=== PATIENT | female | born 1950 | race Caucasian/White ===

== ENCOUNTER 2020-06-16 20:37 | Emergency (ER) | payer MEDICARE ==
--- NOTE | 2020-06-16 20:45 | EDM.PDOC ---
ED HPI GENERAL MEDICAL PROBLEM - General Chief Complaint: Respiratory Problem Stated Complaint: SOB Time Seen by Provider: 06/16/20 20:40 - History of Present Illness INITIAL COMMENTS - FREE TEXT/NARRATIVE: 69 year-old female presents today for shortness of breath. Patient states that today she felt like she was choking and could not catch her breath. Patient also has some nausea. Patient denies any fevers chills. She reports she is also had a cough with white sputum. Patient denies any other complaints. Chest Pain Score (Numeric/FACES): 6 - Related Data Allergies Allergy/AdvReac Type Severity Reaction Status Date / Time lisinopril Allergy Cough Verified 06/16/20 20:40 morphine Allergy Vomiting Verified 06/16/20 20:40 Home Meds: Home Meds Aspirin [Adult Aspirin] 1 tab DAILY 07/25/18 [History] Insulin Aspart [NovoLOG] 0 unit SQ WITHMEALSANDBED 07/25/18 [History] Insulin Detemir [Levemir] 45 unit SQ DAILY 07/25/18 [History] Losartan Potassium 1 tab DAILY 07/25/18 [History] Potassium Chloride [K-Tab ER] 1 tab DAILY 07/25/18 [History] Past Medical History Cardiovascular History: Reports: High Cholesterol, Hypertension Endocrine/Metabolic History: Reports: Diabetes, Type I, Obesity/BMI 30+ - Past Surgical History GI Surgical History: Reports: Cholecystectomy Musculoskeletal Surgical History: Reports: Amputation Social & Family History - Family History Family Medical History: Noncontributory ED ROS GENERAL - Review of Systems Review Of Systems: See Below Respiratory: Reports: Shortness of Breath ED EXAM, GENERAL - Physical Exam Exam: See Below Exam Limited By: No Limitations General Appearance: Alert, No Apparent Distress Throat/Mouth: Normal Inspection Respiratory/Chest: No Respiratory Distress, Lungs Clear, Normal Breath Sounds Cardiovascular: Regular Rate, Rhythm GI/Abdominal: Normal Bowel Sounds, Soft, Non-Tender Neurological: Alert, Oriented #1 Interpretation EKG Date: 06/16/20 Time: 20:36 Rhythm: NSR Rate (Beats/Min): 88 ST-T: Normal Course - Vital Signs Last Recorded V/S: Last Vital Signs Temp 96.8 F L 06/16/20 20:42 Pulse 81 06/16/20 22:07 Resp 20 06/16/20 21:37 BP 135/57 L 06/16/20 22:07 Pulse Ox 95 06/16/20 22:07 - Orders/Labs/Meds Labs: Laboratory Tests 06/16/20 06/16/20 06/16/20 Range/Units 20:51 20:51 22:06 WBC 8.53 (4.0-11.0) K/uL RBC 4.73 (4.30-5.90) M/uL Hgb 14.0 (12.0-16.0) g/dL Hct 44.1 (36.0-46.0) % MCV 93.2 (80.0-98.0) fL MCH 29.6 (27.0-32.0) pg MCHC 31.7 (31.0-37.0) g/dL RDW Std Deviation 47.2 (28.0-62.0) fl RDW Coeff of Nevaeh 14 (11.0-15.0) % Plt Count 213 (150-400) K/uL MPV 9.50 (7.40-12.00) fL Neut % (Auto) 66.8 (48.0-80.0) % Lymph % (Auto) 26.0 (16.0-40.0) % [place] % (Auto) 6.9 (0.0-15.0) % Eos % (Auto) 0.1 (0.0-7.0) % Baso % (Auto) 0.2 (0.0-1.5) % Neut # (Auto) 5.7 (1.4-5.7) K/uL Lymph # (Auto) 2.2 (0.6-2.4) K/uL [place] # (Auto) 0.6 (0.0-0.8) K/uL Eos # (Auto) 0.0 (0.0-0.7) K/uL Baso # (Auto) 0.0 (0.0-0.1) K/uL Nucleated RBC % 0.0 /100WBC Nucleated RBCs # 0 K/uL Sodium 137 (136-145) mmol/L Potassium 4.3 (3.5-5.1) mmol/L Chloride 100 (98-107) mmol/L Carbon Dioxide 25.5 (21.0-32.0) mmol/L BUN 16 (7.0-18.0) mg/dL Creatinine 1.1 H (0.6-1.0) mg/dL Est Cr Clr Drug Dosing 43.91 mL/min Estimated GFR (MDRD) 49.0 ml/min Glucose 128 H (74-106) mg/dL Calcium 8.6 (8.5-10.1) mg/dL Total Bilirubin 0.5 (0.2-1.0) mg/dL AST 38 H (15-37) IU/L ALT 47 (14-63) IU/L Alkaline Phosphatase 224 H (46-116) U/L Troponin I < 0.050 (0.000-0.056) ng/mL Total Protein 7.3 (6.4-8.2) g/dL Albumin 3.0 L (3.4-5.0) g/dL Globulin 4.3 H (2.6-4.0) g/dL Albumin/Globulin Ratio 0.7 L (0.9-1.6) Lipase 26 L (73-393) U/L Departure - Departure Time of Disposition: 21:56 Disposition: Home, Self-Care 01 Condition: Good Clinical Impression: Dyspnea - Discharge Information *PRESCRIPTION DRUG MONITORING PROGRAM REVIEWED*: Not Applicable *COPY OF PRESCRIPTION DRUG MONITORING REPORT IN PATIENT MONIKA: Not Applicable Instructions: Shortness of Breath, Adult, [id number] Referrals: PCP,None [Primary Care Provider] - Forms: ED Department Discharge Additional Instructions: The following information is given to patients seen in the emergency department who are being discharged to home. This information is to outline your options for follow-up care. We provide all patients seen in our emergency department with a follow-up referral. The need for follow-up, as well as the timing and circumstances, are variable depending upon the specifics of your emergency department visit. If you don't have a primary care physician on staff, we will provide you with a referral. We always advise you to contact your personal physician following an emergency department visit to inform them of the circumstance of the visit and for follow-up with them and/or the need for any referrals to a consulting specialist. The emergency department will also refer you to a specialist when appropriate. This referral assures that you have the opportunity for follow-up care with a specialist. All of these measure are taken in an effort to provide you with optimal care, which includes your follow-up. Under all circumstances we always encourage you to contact your private physician who remains a resource for coordinating your care. When calling for follow-up care, please make the office aware that this follow-up is from your recent emergency room visit. If for any reason you are refused follow-up, please contact the [facility] Emergency Department at and asked to speak to the emergency department charge nurse. Please continue to monitor oxygen level if you continue to feel short of breath please return to the emergency department. Sepsis Event Note (ED) - Focused Exam Vital Signs: Vital Signs Temp Pulse Resp BP Pulse Ox 06/16/20 22:07 81 135/57 L 95 06/16/20 21:37 70 20 143/44 H 94 L 06/16/20 20:42 96.8 F L 95 22 H 190/86 H 94 L - Assessment/Plan Plan: -year-old female presents today for shortness of breath and cough. Patient has noted complaints. Will obtain labs and x-ray and reassess. Patient is currently satting 94% on room air. Oxygen level is 98% on room. Patient x-ray and labs reviewed. Patient will be discharged home and given strict return precautions. Patient stable.
[2020-06-16 21:16] LABS: CARBON DIOXIDE,CO2 25.5 mmol/L (21.0-32.0); POTASSIUM,K 4.3 mmol/L (3.5-5.1)
--- NOTE | 2020-06-16 21:30 | CR ---
INDICATION: cough and SOB. 1 image sent. TECHNIQUE: Chest 1 view. COMPARISON: None. FINDINGS: Cardiovascular and mediastinum: Heart size and vasculature are normal in caliber and appearance. Mediastinum is within normal limits. Lungs and pleural space: Lungs are clear. No sign of infiltrate or mass. No sign of pleural effusion. No pneumothorax. Bones and soft tissues: No significant findings. IMPRESSION: Unremarkable chest. Dictated by: Darnell Avendaño MD @ 06/16/2020 21:27:25 (Electronically Signed)
== END 2020-06-16 23:04 | disposition home or self-care (01) ==
LOC: MW.ED 20:37
DX: R06.02 Shortness of breath (principal); I10 Essential (primary) hypertension; E10.9 Type 1 diabetes mellitus without complications; E66.9 Obesity, unspecified; Z79.82 Long term (current) use of aspirin; Z79.899 Other long term (current) drug therapy
CPT/HCPCS: 36415; 71045; 71045-26; 80053; 83690; 84484; 85025; 93005; 99283; 99285-25

== ENCOUNTER 2021-04-21 23:44 | Emergency (ER) | payer MEDICARE ==
[2021-04-22] MEDS ORDERED: traMADol 50 MG Tab PO ONE (01:33)
[2021-04-22 02:28] LABS: CARBON DIOXIDE,CO2 30.8 mmol/L (21.0-32.0); POTASSIUM,K 5.2 mmol/L (3.5-5.1)
[2021-04-22] MEDS ORDERED: Amoxicillin/Clavulanate K 875-125 MG Tab PO ONE (02:42)
--- NOTE | 2021-04-22 02:48 | EDM.PDOC ---
ED HPI GENERAL MEDICAL PROBLEM - General Chief Complaint: Lower Extremity Injury/Pain Stated Complaint: POSSIBLE INFECTION IN FOOT Time Seen by Provider: 04/22/21 01:21 - History of Present Illness INITIAL COMMENTS - FREE TEXT/NARRATIVE: HISTORY AND PHYSICAL: History of present illness: This is a 70-year-old female who presents ER today secondary to pain to her left foot that is been progressively getting worse over the last several weeks. Patient reports that she was seen by her primary care physician yesterday to evaluate her foot. At that time did not think there was an infection. Patient reports that the pain is been so severe that she is having a hard time transitioning from her wheelchair to her bed to keep her legs elevated. She reports that her legs become more swollen. Patient denies any recent fevers, s hakes, chills, nausea, vomiting, diarrhea, dysuria, frequency, urgency. Patient does have a history of diabetes, hypertension, status post right AKA. Review of systems: As per history of present illness and below otherwise all systems reviewed and negative. Past medical history: As per history of present illness and as reviewed below otherwise noncontributory. Surgical history: As per history of present illness and as reviewed below otherwise noncontributory. Social history: No reported history of drug abuse. Family history: As per history of present illness and as reviewed below otherwise noncontributory. Physical exam: This patient was seen and evaluated during the 2019 SARS-CoV-2 novel coronavirus pandemic period. Community viral transmission is ongoing at time of this enc ounter and the emergency department is operating under pandemic response procedures. Constitutional: Patient is oriented to person, place, and time. Appears well- developed and well-nourished. No distress. HEENT: Moist mucous membranes Head: Normocephalic and atraumatic Eyes: Right eye exhibits no discharge. Left eye exhibits no discharge. No scleral icterus Neck: Normal range of motion. No tracheal deviation present. Cardiovascular: Normal rate and regular rhythm. Pulmonary: Effort normal, no respiratory distress. Abdominal: No distention Musculoskeletal: Normal range of motion Neurologic: Alert and oriented to person, place and time. Skin: [place], warm and dry. Psychiatric: Normal mood and affect. Behavior is normal. Judgment and thought content normal. Nursing note and vital signs have been reviewed Patient is status post right AKA. Patient's left foot is edematous approximately 2+ with good capillary refill distally, warm foot without evidence of a arterial occlusion. Patient does have a small ulcer at the bottom of her big toe. No drainage or purulence. Diagnostics: [] Therapeutics: [] Assessment and plan: 70-year-old female who presents ER today secondary to pain to her left foot that been progressively worsening over the last several weeks. Patient at this time is only taking medication for neuropathy for her foot. Patient was given Ultram here in the ED and will be given Augmentin. Patient's labs are unremarkable except for an elevated BUN and creatinine. I have discussed this with the patient and the need to keep a close follow-up with her primary care physician to evaluate her renal function. Patient will be given a prescription for Ultram and Augmentin to assist with possible early infection of her foot. There is no evidence of acute arterial occlusion at this time. Patient is not vaccinated for coronavirus Reassessment at the time of disposition demonstrates that the patient is in no acute distress. The patient has remained stable throughout the entire ED visit and is without objective evidence for acute process requiring urgent intervention or hospitalization. The patient is stable for discharge, counseling is provided as documented above, discussed symptomatic treatment and specific conditions for return. I have spoken with the patient/caregiver and discussed todays findings, in addition to providing specific details for the plan of care. Questions are answered and there is agreement with the plan. Definitive disposition and diagnosis as appropriate pending reevaluation and review of above. Left Lower Foot Pain Score (Numeric/FACES): 8 - Related Data Allergies Allergy/AdvReac Type Severity Reaction Status Date / Time lisinopril Allergy Cough Verified 06/16/20 20:40 morphine Allergy Vomiting Verified 06/16/20 20:40 Home Meds: Home Meds Aspirin [Adult Aspirin] 1 tab PO DAILY 07/25/18 [History] Insulin Aspart [NovoLOG] 0 unit SQ WITHMEALSANDBED 07/25/18 [History] Insulin Detemir [Levemir] 45 unit SQ DAILY 07/25/18 [History] Losartan Potassium 1 tab DAILY 07/25/18 [History] Potassium Chloride [K-Tab ER] 1 tab DAILY 07/25/18 [History] Amoxicillin/Clavulanate K [Augmentin 875-125 MG] 1 tab PO Q12HR 10 Days #20 tab 04/22/21 [Rx] Furosemide [Lasix] 40 mg PO DAILY 04/22/21 [History] Gabapentin [Neurontin] 300 mg PO TID 04/22/21 [History] Rosuvastatin [Crestor] 5 mg PO DAILY 04/22/21 [History] traMADol [Ultram] 50 mg PO Q6H PRN #12 tab 04/22/21 [Rx] Past Medical History Cardiovascular History: Reports: High Cholesterol, Hypertension Endocrine/Metabolic History: Reports: Diabetes, Type I, Obesity/BMI 30+ - Infectious Disease History Infectious Disease History: Reports: Chicken Pox, Mumps - Past Surgical History GI Surgical History: Reports: Cholecystectomy Musculoskeletal Surgical History: Reports: Amputation Social & Family History - Family History Family Medical History: No Pertinent Family History - Tobacco Use Tobacco Use Status *Q: Never Tobacco User Second Hand Smoke Exposure: No - Caffeine Use Caffeine Use: Reports: Coffee, Tea - Recreational Drug Use Recreational Drug Use: No Review of Systems - Review of Systems Review Of Systems: See Below ED EXAM, GENERAL - Physical Exam Exam: See Below Course - Vital Signs Last Recorded V/S: Last Vital Signs Temp 97.0 F 04/22/21 01:42 Pulse 63 04/22/21 01:42 Resp 18 04/22/21 01:42 BP 132/45 L 04/22/21 01:42 Pulse Ox 100 04/22/21 01:42 - Orders/Labs/Meds Orders: Active Orders 24 hr Category Date Time Status Amoxicillin/Clavulanate K [Augmentin 875 MG/125 MG] Med 04/22/21 02:42 Once 1 tab PO ONETIME ONE Medication Orders Amoxicillin/Clavulanate Potassium (Amoxicillin/Clavulanate K 875-125 Mg Tab) 1 tab PO ONETIME ONE Stop: 04/22/21 02:43 Labs: Laboratory Tests 04/22/21 04/22/21 04/22/21 Range/Units 01:52 01:52 01:52 WBC 11.37 H (4.0-11.0) K/uL RBC 3.49 L (4.30-5.90) M/uL Hgb 10.4 L (12.0-16.0) g/dL Hct 32.7 L (36.0-46.0) % MCV 93.7 (80.0-98.0) fL MCH 29.8 (27.0-32.0) pg MCHC 31.8 (31.0-37.0) g/dL RDW Std Deviation 50.2 (28.0-62.0) fl RDW Coeff of Nevaeh 15 (11.0-15.0) % Plt Count 328 (150-400) K/uL MPV 9.20 (7.40-12.00) fL Neut % (Auto) 69.5 (48.0-80.0) % Lymph % (Auto) 21.3 (16.0-40.0) % [place] % (Auto) 6.8 (0.0-15.0) % Eos % (Auto) 2.1 (0.0-7.0) % Baso % (Auto) 0.3 (0.0-1.5) % Neut # (Auto) 7.9 H (1.4-5.7) K/uL Lymph # (Auto) 2.4 (0.6-2.4) K/uL [place] # (Auto) 0.8 (0.0-0.8) K/uL Eos # (Auto) 0.2 (0.0-0.7) K/uL Baso # (Auto) 0.0 (0.0-0.1) K/uL Sodium 138 (136-145) mmol/L Potassium 5.2 H (3.5-5.1) mmol/L Chloride 102 (98-107) mmol/L Carbon Dioxide 30.8 (21.0-32.0) mmol/L BUN 78 H (7.0-18.0) mg/dL Creatinine 2.2 H (0.6-1.0) mg/dL Est Cr Clr Drug Dosing 21.64 mL/min Estimated GFR (MDRD) 21.9 ml/min Glucose 176 H (74-106) mg/dL Lactic Acid 0.9 (0.4-2.0) mmol/L Calcium 8.6 (8.5-10.1) mg/dL Total Bilirubin 0.2 (0.2-1.0) mg/dL AST 27 (15-37) IU/L ALT 50 (14-63) IU/L Alkaline Phosphatase 184 H (46-116) U/L Total Protein 6.6 (6.4-8.2) g/dL Albumin 2.6 L (3.4-5.0) g/dL Globulin 4.0 (2.6-4.0) g/dL Albumin/Globulin Ratio 0.7 L (0.9-1.6) Meds: Medications Generic Name Dose Route Start Last Admin Trade Name Freq PRN Reason Stop Dose Admin Amoxicillin/Clavulanate Potassium 1 tab 04/22/21 02:42 Amoxicillin/Clavulanate K 875-125 Mg Tab PO 04/22/21 02:43 ONETIME ONE Discontinued Medications Generic Name Dose Route Start Last Admin Trade Name Freq PRN Reason Stop Dose Admin Tramadol HCl 50 mg 04/22/21 01:33 04/22/21 02:37 Tramadol 50 Mg Tab PO 04/22/21 01:34 50 mg ONETIME ONE Administration Departure - Departure Time of Disposition: 02:45 Disposition: Home, Self-Care 01 Condition: Good Clinical Impression: Foot ulcer, left Qualifiers: Non-pressure ulcer stage: unspecified non-pressure ulcer stage Qualified Code(s): L97.529 - Non-pressure chronic ulcer of other part of left foot with unspecified severity - Discharge Information Instructions: Cellulitis, Adult Referrals: Ky William MD [Primary Care Provider] - Additional Instructions: You were seen and evaluated in ER today secondary to increasing pain to your left foot. This is most likely secondary to an ulcer that is developing under your big toe. You will be started on Augmentin as an antibiotic to help with any early infection. You will also be given a prescription for Ultram to help you with your pain. Please make an appointment to see your family doctor next week for reevaluation. As we discussed, your renal function appears to be slowly worsening over the last year. Please talk to your family doctor about this to so they can address it with you and keep close tabs on your renal function. The following information is given to patients seen in the emergency department who are being discharged to home. This information is to outline your options for follow-up care. We provide all patients seen in our emergency department with a follow-up referral. The need for follow-up, as well as the timing and circumstances, are variable depending upon the specifics of your emergency department visit. If you don't have a primary care physician on staff, we will provide you with a referral. We always advise you to contact your personal physician following an emergency department visit to inform them of the circumstance of the visit and for follow-up with them and/or the need for any referrals to a consulting specialist. The emergency department will also refer you to a specialist when appropriate. This referral assures that you have the opportunity for follow-up care with a specialist. All of these measure are taken in an effort to provide you with optimal care, which includes your follow-up. Under all circumstances we always encourage you to contact your private physician who remains a resource for coordinating your care. When calling for follow-up care, please make the office aware that this follow-up is from your recent emergency room visit. If for any reason you are refused follow-up, please contact the [facility] Emergency Department at and asked to speak to the emergency department charge nurse. [facility] [address] [place] [address] [place] [address] Sepsis Event Note (ED) - Focused Exam Vital Signs: Vital Signs Temp Pulse Resp BP Pulse Ox 04/22/21 01:42 97.0 F 63 18 132/45 L 100 - My Orders Last 24 Hours: My Active Orders 04/22/21 02:42 Amoxicillin/Clavulanate K [Augmentin 875 MG/125 MG] 1 tab PO ONETIME ONE - Assessment/Plan Last 24 Hours: My Active Orders 04/22/21 02:42 Amoxicillin/Clavulanate K [Augmentin 875 MG/125 MG] 1 tab PO ONETIME ONE
== END 2021-04-22 03:32 | disposition home or self-care (01) ==
LOC: MW.ED 23:44
DX: E10.621 Type 1 diabetes mellitus with foot ulcer (principal); L97.529 Non-pressure chronic ulcer of other part of left foot with unspecified severity; E78.00 Pure hypercholesterolemia, unspecified; I10 Essential (primary) hypertension; E66.9 Obesity, unspecified; Z68.41 Body mass index [BMI] 40.0-44.9, adult; Z88.8 Allergy status to other drugs, medicaments and biological substances; Z88.5 Allergy status to narcotic agent; Z79.82 Long term (current) use of aspirin; Z79.899 Other long term (current) drug therapy
CPT/HCPCS: 36415; 80053; 83605; 85025; 99283; A9270

== ENCOUNTER 2021-11-14 04:32 | Emergency (ER) | payer MEDICARE, OTHER ==
[2021-11-14] MEDS ORDERED: Aspirin 81 MG Tab.Chew PO ONE (04:42)
[2021-11-14] MEDS ORDERED: Ondansetron 4 MG/2 ML SDV IVPUSH ONE (04:48)
[2021-11-14 05:32] LABS: BLOOD UREA NITROGEN,BUN 26 mg/dL (7.0-18.0); CARBON DIOXIDE,CO2 24.7 mmol/L (21.0-32.0); CHLORIDE,CL 101 mmol/L (98-107); GLUCOSE RANDOM 126 mg/dL (74-106); POTASSIUM,K 3.4 mmol/L (3.5-5.1); SODIUM,NA 137 mmol/L (136-145)
[2021-11-14] MEDS ORDERED: Sodium Chloride 0.9% 500 ML IV SCH ×2 (06:00→06:15)
[2021-11-14] MEDS ORDERED: traMADol 50 MG Tab PO ONE (08:03)
[2021-11-14] MEDS ORDERED: HYDROmorphone 1 MG/ML Syringe IVPUSH ONE ×2 (08:21→09:12)
== END 2021-11-14 12:03 | disposition home or self-care (01) ==
LOC: MW.ED 04:32
DX: K29.70 Gastritis, unspecified, without bleeding (principal); E86.0 Dehydration; R07.9 Chest pain, unspecified; I10 Essential (primary) hypertension; E10.9 Type 1 diabetes mellitus without complications; E78.00 Pure hypercholesterolemia, unspecified; E66.9 Obesity, unspecified; Z68.33 Body mass index [BMI] 33.0-33.9, adult; Z88.5 Allergy status to narcotic agent; Z88.8 Allergy status to other drugs, medicaments and biological substances; Z79.4 Long term (current) use of insulin; Z79.899 Other long term (current) drug therapy
CPT/HCPCS: 36415; 71045; 80053; 83735; 84484; 85025; 99285; J1170; J2405; J7040

== ENCOUNTER 2023-11-23 06:37 | Emergency (ER) | payer MEDICARE, OTHER ==
[2023-11-23 06:45] LABS: BASOPHILS ABSOLUTE AUTO 0.01 K/uL (0.00-0.20); BASOPHILS PERCENT AUTO 0.1 % (0.0-1.0); EOSINOPHILS ABSOLUTE AUTO 0.27 K/uL (0.00-0.45); EOSINOPHILS PERCENT AUTO 3.9 % (0.0-6.0); HEMATOCRIT 35.7 % (37.0-47.0); HEMOGLOBIN 11.8 g/dL (12.0-16.0); IMMATURE GRAN ABSOLUTE AUTO 0.01 K/uL (0.00-0.05); IMMATURE GRAN PERCENT AUTO 0.1 % (0.0-0.4); LYMPHOCYTES ABSOLUTE AUTO 1.38 K/uL (1.00-4.80); LYMPHOCYTES PERCENT AUTO 19.8 % (24.0-44.0); MEAN CORPUSCULAR HEMOGLOBIN 30.2 pg (28.0-32.0); MEAN CORPUSCULAR HGB CONC 33.1 g/dL (32.0-36.0); MEAN CORPUSCULAR VOLUME 91.3 fL (83.0-99.0); MEAN PLATELET VOLUME 8.7 fL (9.4-12.3); MONOCYTES ABSOLUTE AUTO 0.75 K/uL (0.00-0.80); MONOCYTES PERCENT AUTO 10.8 % (0.0-8.0); NEUTROPHILS ABSOLUTE AUTO 4.55 K/uL (1.80-7.70); NEUTROPHILS PERCENT AUTO 65.3 % (41.0-71.0); PLATELET COUNT,PLT 203 K/uL (150-400); RED BLOOD CELL COUNT 3.91 M/uL (4.10-5.30); WHITE BLOOD CELL COUNT,WBC 6.97 K/uL (3.9-11.3)
[2023-11-23] MEDS: Ondansetron 4 MG/2 ML SDV IVPUSH ONE (06:46)
[2023-11-23] MEDS: Famotidine 20 MG/2 ML SDV IVPUSH ONE (06:46)
[2023-11-23] MEDS: fentaNYL 100 MCG/2 ML SDV IVPUSH ONE (06:46)
[2023-11-23 07:11] LABS: A/G RATIO 0.7 (0.9-1.6); ALBUMIN 2.9 g/dL (3.4-5.0); BILIRUBIN TOTAL 0.3 mg/dL (0.2-1.0); CALCIUM 8.5 mg/dL (8.5-10.1); CARBON DIOXIDE,CO2 22.7 mmol/L (21.0-32.0); CREATININE 1.7 mg/dL (0.6-1.0); EST CRCL DRUG DOSING (CG) 26.77 mL/min; MAGNESIUM 1.9 mg/dL (1.8-2.4); POTASSIUM,K 3.5 mmol/L (3.5-5.1); PROTEIN TOTAL,TP 7.2 g/dL (6.4-8.2)
[2023-11-23 07:34] LABS: CORONAVIRUS COVID-19 NAA NEGATIVE (NEGATIVE); INFLUENZA A NAA NEGATIVE (NEGATIVE); INFLUENZA B NAA NEGATIVE (NEGATIVE); RESPIRATORY SYNCYTIAL VIR NAA NEGATIVE (NEGATIVE)
[2023-11-23] MEDS: Iopamidol 755 Mg/ML 100 ML Bottle IVPUSH STA (09:40)
== END 2023-11-23 10:25 | disposition home or self-care (01) ==
LOC: MW.ED 06:37
DX: R11.2 Nausea with vomiting, unspecified (principal); R19.7 Diarrhea, unspecified; I48.91 Unspecified atrial fibrillation; E78.00 Pure hypercholesterolemia, unspecified; I25.2 Old myocardial infarction; I13.0 Hypertensive heart and chronic kidney disease with heart failure and stage 1 through stage 4 chronic kidney disease, or unspecified chronic kidney disease; I50.9 Heart failure, unspecified; N18.9 Chronic kidney disease, unspecified; E11.22 Type 2 diabetes mellitus with diabetic chronic kidney disease; E66.9 Obesity, unspecified; Z95.1 Presence of aortocoronary bypass graft; Z79.01 Long term (current) use of anticoagulants; Z79.02 Long term (current) use of antithrombotics/antiplatelets; Z79.4 Long term (current) use of insulin; Z79.899 Other long term (current) drug therapy; Z88.2 Allergy status to sulfonamides; Z88.5 Allergy status to narcotic agent; Z88.8 Allergy status to other drugs, medicaments and biological substances; Z75.8 Other problems related to medical facilities and other health care
CPT/HCPCS: 0241U; 36415; 74177; 80053; 83690; 83735; 84484; 85025; 96374; 96375; 99284; J2405; J3490; Q9967; J3010

== ENCOUNTER 2024-02-14 14:15 | Emergency (ER) | payer MEDICARE, OTHER ==
[2024-02-14 15:01] LABS: BILIRUBIN,URINE NEGATIVE (NEGATIVE); COLOR,URINE YELLOW; GLUCOSE,URINE NEGATIVE (NEGATIVE); KETONES,URINE NEGATIVE (NEGATIVE); LEUKOCYTE ESTERASE,URINE MODERATE (NEGATIVE); NITRITE,URINE POSITIVE (NEGATIVE); OCCULT BLOOD,URINE TRACE-INTACT (NEGATIVE); PROTEIN,URINE NEGATIVE (NEGATIVE); UROBILINOGEN,URINE 0.2 EU/dL (<2.0)
[2024-02-14 15:05] LABS: BASOPHILS ABSOLUTE AUTO 0.01 K/uL (0.00-0.20); BASOPHILS PERCENT AUTO 0.1 % (0.0-1.0); EOSINOPHILS ABSOLUTE AUTO 0.08 K/uL (0.00-0.45); EOSINOPHILS PERCENT AUTO 1.1 % (0.0-6.0); HEMATOCRIT 36.1 % (37.0-47.0); HEMOGLOBIN 11.9 g/dL (12.0-16.0); IMMATURE GRAN ABSOLUTE AUTO 0.02 K/uL (0.00-0.05); IMMATURE GRAN PERCENT AUTO 0.3 % (0.0-0.4); LYMPHOCYTES PERCENT AUTO 23.8 % (24.0-44.0); MEAN CORPUSCULAR HEMOGLOBIN 30.1 pg (28.0-32.0); MEAN CORPUSCULAR VOLUME 91.4 fL (83.0-99.0); MEAN PLATELET VOLUME 9.3 fL (9.4-12.3); MONOCYTES ABSOLUTE AUTO 0.54 K/uL (0.00-0.80); MONOCYTES PERCENT AUTO 7.1 % (0.0-8.0); NEUTROPHILS ABSOLUTE AUTO 5.12 K/uL (1.80-7.70); NEUTROPHILS PERCENT AUTO 67.6 % (41.0-71.0); PLATELET COUNT,PLT 253 K/uL (150-400); RED BLOOD CELL COUNT 3.95 M/uL (4.10-5.30); WHITE BLOOD CELL COUNT,WBC 7.57 K/uL (3.9-11.3)
[2024-02-14 15:22] LABS: APPEARANCE,URINE HAZY
[2024-02-14 15:25] LABS: A/G RATIO 0.7 (0.9-1.6); BILIRUBIN TOTAL 0.3 mg/dL (0.2-1.0); CALCIUM 8.8 mg/dL (8.5-10.1); CARBON DIOXIDE,CO2 30.2 mmol/L (21.0-32.0); CREATININE 1.8 mg/dL (0.6-1.0); EST CRCL DRUG DOSING (CG) 25.28 mL/min; MAGNESIUM 1.9 mg/dL (1.8-2.4); POTASSIUM,K 3.8 mmol/L (3.5-5.1); PROTEIN TOTAL,TP 7.1 g/dL (6.4-8.2); TSH ULTRASENSITIVE 0.72 uIU/mL (0.36-3.74)
[2024-02-14 15:28] LABS: BACTERIA,URINE 3+ (NEGATIVE); EPITHELIAL CELLS,URINE OCCASIONAL (NONE-FEW); RBC,URINE 0-3 (0-2/HPF); WBC,URINE 0-3 (0-5/HPF)
[2024-02-14 15:43] LABS: INR 1.16 (0.86-1.11)
[2024-02-14] MEDS: Nitroglycerin 0.4 MG Tab.SL SL PRN (15:44)
[2024-02-14] MEDS: Sodium Chloride 0.9% 1,000 ML IV ONE (15:45)
[2024-02-14] MEDS: Metoprolol Tartrate 5 MG/5 ML SDV IVPUSH ONE ×3 (16:24→19:37)
[2024-02-14] MEDS: Diltiazem 25 MG/5 ML SDV IVPUSH ONE (16:47)
[2024-02-14] MEDS: cefTRIAXone 1 GM in Sodium Chloride 0.9% 50 ML IV ONE (17:25)
== END 2024-02-14 19:47 ==
LOC: MW.ED 14:15
DX: I21.4 Non-ST elevation (NSTEMI) myocardial infarction (principal); I48.91 Unspecified atrial fibrillation; I10 Essential (primary) hypertension; E78.00 Pure hypercholesterolemia, unspecified; E66.9 Obesity, unspecified; E11.9 Type 2 diabetes mellitus without complications; Z88.2 Allergy status to sulfonamides; Z88.5 Allergy status to narcotic agent; Z88.8 Allergy status to other drugs, medicaments and biological substances; Z79.4 Long term (current) use of insulin; Z79.899 Other long term (current) drug therapy; Z90.49 Acquired absence of other specified parts of digestive tract; Z75.8 Other problems related to medical facilities and other health care; Z68.34 Body mass index [BMI] 34.0-34.9, adult
CPT/HCPCS: 36415; 71045; 80053; 81001; 83735; 84443; 84484; 85025; 85610; 87086; 87088; 87186; 93005; 96361; 96374; 96375; 96376; 99285; A9270; J0696; J3490; J7030; 93010; 99284

== ENCOUNTER 2024-04-22 17:50 | Emergency (ER) | payer MEDICARE, OTHER ==
[2024-04-22] MEDS: Sodium Chloride 0.9% 10 ML Syringe FLUSH PRN (18:01)
[2024-04-22] MEDS: Sodium Chloride 0.9% 2.5 ML Syringe FLUSH PRN (18:01)
[2024-04-22] MEDS: Sodium Chloride 0.9% 500 ML IV ONE (18:02)
[2024-04-22] MEDS: Nitroglycerin 0.4 MG Tab.SL SL ONE (18:08)
[2024-04-22] MEDS: LORazepam 2 MG/ML SDV IVPUSH STA (18:24)
[2024-04-22 18:25] LABS: BASOPHILS ABSOLUTE AUTO 0.03 K/uL (0.00-0.20); BASOPHILS PERCENT AUTO 0.4 % (0.0-1.0); EOSINOPHILS ABSOLUTE AUTO 0.11 K/uL (0.00-0.45); EOSINOPHILS PERCENT AUTO 1.5 % (0.0-6.0); HEMATOCRIT 35.6 % (37.0-47.0); HEMOGLOBIN 11.5 g/dL (12.0-16.0); IMMATURE GRAN ABSOLUTE AUTO 0.02 K/uL (0.00-0.05); IMMATURE GRAN PERCENT AUTO 0.3 % (0.0-0.4); LYMPHOCYTES ABSOLUTE AUTO 2.05 K/uL (1.00-4.80); LYMPHOCYTES PERCENT AUTO 27.9 % (24.0-44.0); MEAN CORPUSCULAR HEMOGLOBIN 29.7 pg (28.0-32.0); MEAN CORPUSCULAR HGB CONC 32.3 g/dL (32.0-36.0); MEAN PLATELET VOLUME 8.9 fL (9.4-12.3); MONOCYTES ABSOLUTE AUTO 0.52 K/uL (0.00-0.80); MONOCYTES PERCENT AUTO 7.1 % (0.0-8.0); NEUTROPHILS ABSOLUTE AUTO 4.63 K/uL (1.80-7.70); NEUTROPHILS PERCENT AUTO 62.8 % (41.0-71.0); PLATELET COUNT,PLT 230 K/uL (150-400); RED BLOOD CELL COUNT 3.87 M/uL (4.10-5.30); WHITE BLOOD CELL COUNT,WBC 7.36 K/uL (3.9-11.3)
[2024-04-22 18:45] LABS: INR 1.14 (0.86-1.11); PTT,PARTIAL THROMBOPLSTIN TIME 23.6 SEC (23.9-30.7)
[2024-04-22 18:55] LABS: CORONAVIRUS COVID-19 NAA NEGATIVE (NEGATIVE); INFLUENZA A NAA NEGATIVE (NEGATIVE); INFLUENZA B NAA NEGATIVE (NEGATIVE); RESPIRATORY SYNCYTIAL VIR NAA NEGATIVE (NEGATIVE)
[2024-04-22 19:07] LABS: A/G RATIO 0.7 (0.9-1.6); ALANINE AMINOTRANSFERASE,ALT 21 IU/L (14-63); ALBUMIN 2.9 g/dL (3.4-5.0); ALKALINE PHOSPHATASE 145 U/L (46-116); ASPARTATE AMNIOTRANSFERASE,AST 21 IU/L (15-37); BILIRUBIN TOTAL 0.3 mg/dL (0.2-1.0); BLOOD UREA NITROGEN,BUN 47 mg/dL (7.0-18.0); CALCIUM 9.3 mg/dL (8.5-10.1); CARBON DIOXIDE,CO2 28.5 mmol/L (21.0-32.0); CHLORIDE,CL 103 mmol/L (98-107); CREATININE 1.9 mg/dL (0.6-1.0); GLUCOSE RANDOM 109 mg/dL (74-106); LIPASE 19 U/L (16-77); MAGNESIUM 2.1 mg/dL (1.8-2.4); POTASSIUM,K 4.1 mmol/L (3.5-5.1); PRO B-TYPE NATRIUR PEPT,BNPPRO 3630 pg/mL (0-450); PROTEIN TOTAL,TP 7.2 g/dL (6.4-8.2); SODIUM,NA 140 mmol/L (136-145)
[2024-04-22 19:08] LABS: ESTIMATED GFR 27 mL/min (>60)
[2024-04-22 20:12] LABS: BILIRUBIN,URINE NEGATIVE (NEGATIVE); COLOR,URINE YELLOW; GLUCOSE,URINE NEGATIVE (NEGATIVE); KETONES,URINE NEGATIVE (NEGATIVE); LEUKOCYTE ESTERASE,URINE MODERATE (NEGATIVE); NITRITE,URINE POSITIVE (NEGATIVE); OCCULT BLOOD,URINE TRACE-INTACT (NEGATIVE); PH,URINE 6.5 (5.0-8.0); PROTEIN,URINE NEGATIVE (NEGATIVE); UROBILINOGEN,URINE 0.2 EU/dL (<2.0)
[2024-04-22 20:20] LABS: APPEARANCE,URINE SLT CLOUDY; BACTERIA,URINE 2+ (NEGATIVE); EPITHELIAL CELLS,URINE RARE (NONE-FEW); RBC,URINE 0-2 (0-2/HPF)
[2024-04-22] MEDS: traMADol 50 MG Tab PO ONE (20:42)
[2024-04-22] MEDS: Furosemide 40 MG/4 ML VIAL IVPUSH ONE (20:42)
[2024-04-22 21:13] LABS: LACTIC ACID 1.1 mmol/L (0.4-2.0)
[2024-04-22] MEDS: Metoprolol Tartrate 5 MG/5 ML SDV IVPUSH ONE (21:55)
[2024-04-22] MEDS: cefTRIAXone 1 GM in Sodium Chloride 0.9% 50 ML IV ONE (21:59)
[2024-04-22] MEDS ORDERED: Nitroglycerin/D5W 25 MG/250 ML BOTTLE IV SCH (22:15)
[2024-04-22] MEDS ORDERED: Heparin Sodium/0.45% NaCl 500 ML IV SCH (22:15)
[2024-04-22] MEDS: Heparin Sodium 5,000 Units/ML Vial IVPUSH ONE (22:40)
[2024-04-22] MEDS: Heparin Sodium/0.45% NaCl 500 ML IV SCH (22:43)
[2024-04-22] MEDS: atorvaSTATin 40 MG Tab PO ONE (22:47)
[2024-04-22] MEDS: Aspirin 81 MG Tab.Chew PO ONE (22:48)
== END 2024-04-23 ==
LOC: MW.ED 17:50
DX: I21.4 Non-ST elevation (NSTEMI) myocardial infarction (principal); N39.0 Urinary tract infection, site not specified; I13.0 Hypertensive heart and chronic kidney disease with heart failure and stage 1 through stage 4 chronic kidney disease, or unspecified chronic kidney disease; I50.9 Heart failure, unspecified; N18.9 Chronic kidney disease, unspecified; I48.91 Unspecified atrial fibrillation; E78.00 Pure hypercholesterolemia, unspecified; E11.22 Type 2 diabetes mellitus with diabetic chronic kidney disease; E66.9 Obesity, unspecified; Z99.2 Dependence on renal dialysis; Z90.49 Acquired absence of other specified parts of digestive tract; Z79.4 Long term (current) use of insulin; Z79.899 Other long term (current) drug therapy; Z79.01 Long term (current) use of anticoagulants; Z79.891 Long term (current) use of opiate analgesic; Z88.2 Allergy status to sulfonamides; Z88.5 Allergy status to narcotic agent; Z88.8 Allergy status to other drugs, medicaments and biological substances; Z75.8 Other problems related to medical facilities and other health care
CPT/HCPCS: 0241U; 36415; 71045; 80053; 81001; 83605; 83690; 83735; 83880; 84484; 85025; 85610; 85730; 87086; 87088; 87186; 96361; 96365; 96366; 96367; 96375; 99285; A9270; J0696; J1644; J1940; J2060; J3490; J7030; 93010